=== PATIENT | female | born 1950 | race Caucasian/White ===

== ENCOUNTER → 2017-08-21 | Outpatient (CLI) | payer BC ==
[2015-01-30 10:20] VITALS: BP 115/60
[~2017-08-21] MED LIST: ASPI81TA44 PO; CARV12.52 PO; CHOL10003 PO; FISH1CAP PO; LISI-334 PO; LOVA40TA2 PO; METF500T4 PO; MULT-246 PO; NIAC500T10 PO
--- NOTE | 2017-08-21 09:49 | CARD ---
APPROVED REPORT EXAM: Two-dimensional and M-mode echocardiogram with Doppler and color Doppler. Other Information Quality : GoodHR: 85bpm Rhythm : NSR INDICATION Nonischemic cardiomyopathy 2D DIMENSIONS RVDd2.7 (2.9-3.5cm)Left Atrium(2D)3.4 (1.6-4.0cm) IVSd0.9 (0.7-1.1cm)Aortic Root(2D)2.0 (2.0-3.7cm) LVDd4.9 (3.9-5.9cm)LVOT Diameter2.0 (1.8-2.4cm) PWd0.9 (0.7-1.1cm)LVDs3.1 (2.5-4.0cm) FS (%) 36.3 %SV72.8 ml LVEF(%)65.8 (>50%) Aortic Valve AoV Peak Waldemar.136.8cm/sAoV VTI29.7cm AO Peak GR.7.5mmHgLVOT Peak Waldemar.95.3cm/s AO Mean GR.4mmHgAVA (VMAX)2.16cm2 Mitral Valve MV E Cxqqbvwb38.2cm/sMV E Peak Gr.5mmHg MV DECEL XDRW455dpLQ A Vuhltvkt343.8cm/s MV E Mean Gr.2mmHgE/A Ratio0.7 MV A Tdnkuhmy27fw Pulmonary Valve PV Peak Ipeysflj478.1cm/s Tricuspid Valve TR P. Cxhatcur692nx/sTR Peak Gr.23mmHg Pulmonary Vein S1 Tucgydke19.9cm/sD2 Ugslokcy60.6cm/s PVa iahmzchr09roud LEFT VENTRICLE The left ventricle is normal size. There is normal left ventricular wall thickness. The left ventricu lar systolic function is normal. The Ejection Fraction is 60%. There is normal LV segmental wall michelle on. Transmitral Doppler flow pattern is Grade I-abnormal relaxation pattern. RIGHT VENTRICLE The right ventricle is normal size. There is normal right ventricular wall thickness. The right ventr icular systolic function is normal. ATRIA The left atrium size is normal. The right atrium size is normal. The interatrial septum is intact wit h no evidence for an atrial septal defect or patent foramen ovale as noted on 2-D or Doppler imaging. AORTIC VALVE The aortic valve is mildly sclerotic. The aortic valve is trileaflet. Doppler and Color Flow revealed trace aortic regurgitation. There is no significant aortic valvular stenosis. MITRAL VALVE Mitral annular calcification is mild. The mitral valve leaflets are moderately thickened. There is no evidence of mitral valve prolapse. There is no mitral valve stenosis. Doppler and Color Flow reveale d no mitral valve regurgitation noted. TRICUSPID VALVE Doppler and Color Flow revealed trace tricuspid regurgitation. The pulmonary artery systolic pressure is estimated at 26 mmHg. There is no pulmonary hypertension. PULMONIC VALVE The pulmonic valve is not well visualized but appears to open adequately. Doppler and Color Flow reve aled trace pulmonic valvular regurgitation. There is no pulmonic valvular stenosis by spectral Dopple r. GREAT VESSELS The aortic root is normal in size. The ascending aorta is normal in size. The pulmonary artery is nor mal. The IVC is normal in size and collapses >50% with inspiration. PERICARDIAL EFFUSION There is no evidence of significant pericardial effusion. Critical Notification Critical Value: No <Conclusion> The left ventricular systolic function is normal. The Ejection Fraction is 60%. There is normal LV segmental wall motion. Transmitral Doppler flow pattern is Grade I-abnormal relaxation pattern. Trace aortic regurgitation. Trace tricuspid regurgitation. The pulmonary artery systolic pressure is estimated at 26 mmHg. There is no evidence of significant pericardial effusion.
== END | disposition home or self-care (01) ==
LOC: ECHO 08:38
PROVIDERS: ATTEND Internal Medicine Cardiovascular Disease
DX: I08.2 Rheumatic disorders of both aortic and tricuspid valves (principal); I42.9 Cardiomyopathy, unspecified
CPT/HCPCS: 93306

== ENCOUNTER → 2018-08-23 | Outpatient (CLI) | payer BC ==
[2015-01-30 10:20] VITALS: BP 115/60
[~2018-08-23] MED LIST changes: -ASPI81TA44 PO; +ASPI81TA59 PO; +METF500T16 PO; -METF500T4 PO
--- NOTE | 2018-08-23 10:23 | CARD ---
MR#: [id number] Date of Study: 08/23/2018 Ordering Physician: GEGE BYRNE, Referring Physician: GEGE BYRNE Tech: Loan Mendiola RDCS APPROVED REPORT EXAM: Two-dimensional and M-mode echocardiogram with Doppler and color Doppler. Other Information Quality : Good INDICATION Non-Ischemic Cardiomyopathy 2D DIMENSIONS RVDd2.2 (2.9-3.5cm)Left Atrium(2D)3.5 (1.6-4.0cm) IVSd0.8 (0.7-1.1cm)Aortic Root(2D)2.3 (2.0-3.7cm) LVDd4.6 (3.9-5.9cm)LVOT Diameter1.8 (1.8-2.4cm) PWd1.0 (0.7-1.1cm)LVDs3.7 (2.5-4.0cm) FS (%) 19.9 %SV40.3 ml LVEF(%)40.8 (>50%) Aortic Valve AoV Peak Waldemar.141.2cm/sAoV VTI33.0cm AO Peak GR.8.0mmHgLVOT Peak Waldemar.101.3cm/s AO Mean GR.5mmHgAVA (VMAX)1.77cm2 AI P 1/2 Bbuj404mz Mitral Valve MV E Icyxbruo855.4cm/sMV DECEL VJQA179ov MV A Pcetvggs612.9cm/sE/A Ratio0.9 Tricuspid Valve TR P. Nnxoghia939zx/sRAP MCUNCXNM6xtHx TR Peak Gr.72jqKzZAEN58nqOv Pulmonary Vein S1 Afwkrijo27.7cm/sD2 Ksisikrf53.3cm/s LEFT VENTRICLE The Left Ventricle is mildly dilated. There is normal left ventricular wall thickness. The Ejection F raction is 40-45%. There is mild global hypokinesis of the left ventricle. Transmitral Doppler flow p attern is Grade I-abnormal relaxation pattern. RIGHT VENTRICLE The right ventricle is normal size. The right ventricular systolic function is normal. There is a pac emaker lead in the right ventricle. ATRIA The left atrium size is normal. The right atrium size is normal. A pacemaker is seen in the right atr ium consistent with history. The interatrial septum is intact with no evidence for an atrial septal d efect or patent foramen ovale as noted on 2-D or Doppler imaging. AORTIC VALVE The aortic valve is calcified but opens well. Doppler and Color Flow revealed mild aortic regurgitati on. There is no significant aortic valvular stenosis. MITRAL VALVE The mitral valve is normal in structure and function. There is no evidence of mitral valve prolapse. There is no mitral valve stenosis. Doppler and Color-flow revealed trace mitral regurgitation. TRICUSPID VALVE The tricuspid valve is normal in structure and function. Doppler and Color Flow revealed trace tricus pid regurgitation. The PA pressure was estimated at 25 mmHg. There is no tricuspid valve stenosis. PULMONIC VALVE Doppler and Color Flow revealed mild pulmonic valvular regurgitation. There is no pulmonic valvular s tenosis. GREAT VESSELS The aortic root is normal in size. The ascending aorta is normal in size. The IVC is normal in size a nd collapses >50% with inspiration. PERICARDIAL EFFUSION There is no evidence of significant pericardial effusion. Critical Notification Critical Value: No <Conclusion> The Ejection Fraction is 40-45%. There is mild global hypokinesis of the left ventricle. Transmitral Doppler flow pattern is Grade I-abnormal relaxation pattern. There is a pacemaker lead in the right ventricle. Doppler and Color Flow revealed mild aortic regurgitation. Signed by : Russ Hsu, Electronically Approved : 08/23/2018 10:22:59
== END | disposition home or self-care (01) ==
LOC: ECHO 08:36
PROVIDERS: ATTEND Internal Medicine Cardiovascular Disease
DX: I35.1 Nonrheumatic aortic (valve) insufficiency (principal); I42.9 Cardiomyopathy, unspecified; E11.9 Type 2 diabetes mellitus without complications; I10 Essential (primary) hypertension; E78.5 Hyperlipidemia, unspecified; Z88.0 Allergy status to penicillin
CPT/HCPCS: 93306

== ENCOUNTER → 2019-01-11 | Outpatient (CLI) | payer BC ==
[2015-01-30 10:20] VITALS: BP 115/60
[~2019-01-11] MED LIST changes: +BUPIVACAINE MPF 0.5% 30 ML VIAL. INJ ONE; +CARV12.511 PO; -CARV12.52 PO; +CONTRAST GIVEN. MC PRN; +IOHEXOL 300 MG/ML 50 ML VIAL. IJ ONE; +LIDOCAINE WITH 8.4% SOD BICARB 3 ML DISP.SYRIN. INJ ONE; +methylPREDNISolone ACETATE 80 MG/ML VIAL. IM ONE
--- NOTE | 2019-01-11 09:58 | RAD ---
Fluoroscopically guided right hip joint injection, 01/11/2019: History: Hip pain Under local anesthesia, aseptic conditions and fluoroscopic guidance a 22-gauge spinal needle was passed into the right hip joint via an anterolateral approach. A small amount of iodinated contrast material was injected to confirm intra-articular positioning following which 80 mg of Depo-Medrol mixed with 4 cc of 0.5% bupivacaine was injected into the joint as requested. The spinal needle was then removed and hemostasis obtained. 1.1 minute of fluoroscopy time was utilized. One fluoroscopic spot image was recorded. The patient tolerated the procedure well and left the department in good condition.
== END | disposition home or self-care (01) ==
LOC: RAD 08:29
PROVIDERS: ATTEND Orthopaedic Surgery Sports Medicine
DX: M25.551 Pain in right hip (principal); Z88.0 Allergy status to penicillin
CPT/HCPCS: 20610; 77002; J1040; J3490; Q9967; 20605

== ENCOUNTER → 2019-06-25 | Outpatient (CLI) | payer BC ==
[2015-01-30 10:20] VITALS: BP 115/60
[~2019-06-25] MED LIST changes: +BUPIVACAINE MPF 0.5% 10 ML VIAL for KCIC. IM ONE; -BUPIVACAINE MPF 0.5% 30 ML VIAL. INJ ONE; -CONTRAST GIVEN. MC PRN; -IOHEXOL 300 MG/ML 50 ML VIAL. IJ ONE; +IOHEXOL 300 MG/ML 50 ML VIAL. INT ART ONE; +LIDOCAINE 1% Multi-Dose 20 ML VIAL. ID ONE; -LIDOCAINE WITH 8.4% SOD BICARB 3 ML DISP.SYRIN. INJ ONE; -NIAC500T10 PO; +NIAC500T14 PO; +methylPREDNISolone ACETATE 40 MG/ML VIAL. INT ART ONE; -methylPREDNISolone ACETATE 80 MG/ML VIAL. IM ONE
--- NOTE | 2019-06-26 08:18 | KCIC ---
PROCEDURE: Right hip joint steroid injection under fluoroscopic guidance INDICATION: Right hip pain. Primary osteoarthritis. CONTRAST: Approximately 2 cc Omnipaque 300 FINDINGS: The risks, benefits and alternatives to the procedure were discussed with the patient. A timeout was performed to confirm the patient's identity and laterality of the injection. Utilizing sterile technique, fluoroscopic guidance and local anesthesia with 1% lidocaine, the right hip joint was accessed utilizing a 22-gauge 3.5 inch spinal needle. A small amount Omnipaque 300 was used to confirm the intra-articular location of the needle tip. Subsequently, approximately 8 cc of a mixture containing 4 cc bupivacaine, 4 cc lidocaine and 2 cc (40 mg) Depo Medrol was injected. There were no immediate complications. Impression: 1. Technically successful right hip steroid injection under fluoroscopic guidance. Electronically signed by: WON DANIELS MD (06/26/2019 8:15 AM) [facility]
== END ==
LOC: KCIC 14:37
PROVIDERS: ATTEND Orthopaedic Surgery Sports Medicine
DX: M16.11 Unilateral primary osteoarthritis, right hip (principal)
CPT/HCPCS: 20610; 77002; J1030; Q9967

== ENCOUNTER → 2019-07-01 | Outpatient (CLI) | payer BC ==
[2015-01-30 10:20] VITALS: BP 115/60
[~2019-07-01] MED LIST changes: -BUPIVACAINE MPF 0.5% 10 ML VIAL for KCIC. IM ONE; -IOHEXOL 300 MG/ML 50 ML VIAL. INT ART ONE; -LIDOCAINE 1% Multi-Dose 20 ML VIAL. ID ONE; +REGADENOSON 0.4 MG/5 ML DISP.SYRIN. IV ONE; -methylPREDNISolone ACETATE 40 MG/ML VIAL. INT ART ONE
--- NOTE | 2019-07-01 13:24 | RAD ---
MR#: [id number] Date of Study: 07/01/2019 Ordering Physician: GEGE BYRNE Referring Physician: MARIA A CH Tech: Osvaldo Knight RT (R) (N) APPROVED REPORT Test Type: Pharmacological Stress Nurse/Tech: Pepe Taylor RN Test Indications: cardiomyopathy Cardiac History: Family history, HTN, PPM, DM Medications: See Electronic Medical Record Medical History: See Electronic Medical Record Resting ECG: V paced Resting Heart Rate: 78 bpm Resting Blood Pressure: 166/64mmHg Pretest Chest Pain: None Nurse/Tech Notes Lungs CTA Consent: The procedure was explained to the patient in lay terms. Informed consent was witnessed. Evangelista eout was entered into [employer]. History and Stress Test performed by Pepe Taylor RN Pharm. Details Pharmacologic stress testing was performed using 0.4mg per 5ml of regadenoson given intravenously ove r 7-10 seconds. Stress Symptoms No chest pain or symptoms. POST EXERCISE Reason for Termination: Infusion complete Max HR: 103 bpm Max Blood Pressure: 160/60mmHg Blood Pressure response to exercise: Normal blood pressure response during stress. Heart Rate response to exercise: normal response Chest Pain: No. Arrhythmia: Yes. PVC ST Change: No. INTERPRETATION Stress EKG Conclusion: Baseline EKG showed ventricular paced rhythm. Nondiagnostic changes at peak st ress. No arrhythmias. Imaging Protocol IMAGE PROTOCOL: Rest Tc-99m/stress Tc-99m 1 day Rest: Stress: Viability: Radiopharm.Tc99m CrwhtiuaoWc65m Sestamibi Xeqv25aAs 33mCi Duration 15min. 15min. Img Date 07/01/2019 07/01/2019 Inj-Img Vwrc80yjf. 60min. Rest Admin Site:IV - Left AntecubitalAdministrator:TRUMAN Walters Stress Admin Site: IV - Left AntecubitalAdministrator: TRUMAN Waltesr STRESS DATA End Diast. Vol.57.0mlAv. Heart Rate71.0bpm End Syst. Vol.19.0mlCO Index BSA0.0L/min Myocardial Mass95.0gEject. Jjvhxnma98.0% Stress Rates Pk. Fill Rate3.03EDV/secLVtime Pk. Fill 164.02msec Pk. Empty Rate3.74ESV/secLVtime Pk. Jtxpt737.53msec /3 Pk. Fill1.66EDV/sec Stress Scores Regional WT1.00Summed WT7.00 Regional WM0.00Summed WM3.00 Study quality was good. Left Ventricular size was Normal at Rest and Stress. Lung uptake was . Left Ventricular ejection fraction is 67%. The rest and stress images show normal perfusion, normal contraction and thickening. LV Perf. Quant 17 Seg. SSS0.00 17 Seg. SRS0.00 17 Seg. SDS0.00 Stress Defect Extent (% LAD)0.00Rest Defect Extent (% LAD)0.00Rev. Defect Extent (% LAD)0.00 Stress Defect Extent (% LCX) 0.00Rest Defect Extent (% LCX)8.80Rev. Defect Extent (% LCX)0.00 Stress Defect Extent (% RCA)0.00Rest Defect Extent (% RCA)0.00Rev. Defect Extent (% RCA)0.00 Stress Defect Extent (% LISA)0.00Rest Defect Extent (% LISA)1.50Rev. Defect Extent (% LISA)0.00 Conclusion 1. Regadenoson cardioisotope stress test did not show any evidence of ischemia or infarct. 2. Normal left ventricular systolic function with ejection fraction calculated at 67%. 3. Low risk for cardiac events. Signed by : Gege Byrne, Electronically Approved : 07/01/2019 13:23:39
== END | disposition home or self-care (01) ==
LOC: NM 08:03
PROVIDERS: ATTEND Internal Medicine Cardiovascular Disease
DX: I42.8 Other cardiomyopathies (principal); I10 Essential (primary) hypertension; E11.9 Type 2 diabetes mellitus without complications; Z95.0 Presence of cardiac pacemaker
CPT/HCPCS: 78452; 93017; A9500; J2785

== ENCOUNTER → 2019-07-02 | Outpatient (CLI) | payer BC, MEDICARE ==
[2015-01-30 10:20] VITALS: BP 115/60
[~2019-07-02] MED LIST changes: -REGADENOSON 0.4 MG/5 ML DISP.SYRIN. IV ONE
--- NOTE | 2019-07-02 16:04 | CARD ---
MR#: [id number] Date of Study: 07/02/2019 Ordering Physician: GEGE BYRNE, Referring Physician: GEGE BYRNE, Tech: Carlee Mae APPROVED REPORT EXAM: Two-dimensional and M-mode echocardiogram with Doppler and color Doppler. Other Information Quality : AverageHR: 67bpm Rhythm : Pacemaker INDICATION Cardiomyopathy NonIschemic Cardiomyopathy Surgery/Intervention Pacemaker: Date: 2005 RISK FACTORS Hypertension Hyperlipidemia Diabetes 2D DIMENSIONS RVDd2.6 (2.9-3.5cm)Left Atrium(2D)3.5 (1.6-4.0cm) IVSd0.7 (0.7-1.1cm)Aortic Root(2D)2.6 (2.0-3.7cm) LVDd5.1 (3.9-5.9cm)LVOT Diameter1.8 (1.8-2.4cm) PWd0.8 (0.7-1.1cm)LVDs3.7 (2.5-4.0cm) FS (%) 26.9 %SV64.9 ml LVEF(%)52.2 (>50%) Aortic Valve AoV Peak Waldemar.128.7cm/sAoV VTI26.9cm AO Peak GR.6.6mmHgLVOT Peak Waldemar.82.5cm/s LVOT VTI 20.37cmAO Mean GR.3mmHg KALEB (VMAX)1.67em1BYJ (VTI)2.00cm2 AI P 1/2 Lrvr517pe Mitral Valve MV E Rmbewgwt87.8cm/sMV DECEL QEPA268yc MV A Szgfawcc32.2cm/sMV OCI41fm E/A Ratio1.0MVA (PHT)4.82cm2 TDI E/Lateral E'11.2E/Medial E'11.6 Pulmonary Valve PV Peak Uqaqzfdv585.7cm/sPV Peak Grad.4mmHg Tricuspid Valve TR P. Qaxutmam102ut/sRAP CAOFXMNE3opKa TR Peak Gr.81juKkIJDW67meUq Pulmonary Vein S1 Zdqilmgw13.6cm/sD2 Pisfbvzg81.6cm/s PVa qbcpdvmj298ssvp LEFT VENTRICLE The left ventricle is normal size. There is normal left ventricular wall thickness. The left ventricu lar systolic function is normal and the ejection fraction is within normal range. The Ejection Fracti on is 50-55%. There is normal LV segmental wall motion. Transmitral Doppler flow pattern is Grade II- pseudonormal filling dynamics. RIGHT VENTRICLE The right ventricle is normal size. There is normal right ventricular wall thickness. The right ventr icular systolic function is normal. There is a pacemaker lead in the right ventricle. ATRIA The left atrium size is normal. The right atrium size is normal. There is a pacemaker lead seen in th e right atrium. The interatrial septum is intact with no evidence for an atrial septal defect or marie nt foramen ovale as noted on 2-D or Doppler imaging. AORTIC VALVE The aortic valve is thickened but opens well. Doppler and Color Flow revealed mild aortic regurgitati on. There is no significant aortic valvular stenosis. MITRAL VALVE The mitral valve is thickened but opens well. There is no evidence of mitral valve prolapse. There is no mitral valve stenosis. Doppler and Color-flow revealed trace mitral regurgitation. TRICUSPID VALVE The tricuspid valve is normal in structure and function. Doppler and Color Flow revealed trace tricus pid regurgitation with an estimated PAP of 28 mmHg. There is no tricuspid valve stenosis. PULMONIC VALVE The pulmonic valve is not well visualized. Doppler and Color Flow revealed trace to mild pulmonic joe vular regurgitation. There is no pulmonic valvular stenosis. GREAT VESSELS The aortic root is normal in size. The IVC is normal in size and collapses >50% with inspiration. PERICARDIAL EFFUSION There is no evidence of significant pericardial effusion. Critical Notification Critical Value: No <Conclusion> The left ventricular systolic function is normal and the ejection fraction is within normal range. T he Ejection Fraction is 50-55%. There is normal LV segmental wall motion. There is a pacemaker lead in the right ventricle. Doppler and Color Flow revealed mild aortic regurgitation. Signed by : Russ Hsu, Electronically Approved : 07/02/2019 16:03:31
== END | disposition home or self-care (01) ==
LOC: ECHO 08:56
PROVIDERS: ATTEND Internal Medicine Cardiovascular Disease
DX: I08.8 Other rheumatic multiple valve diseases (principal); I42.8 Other cardiomyopathies; Z95.0 Presence of cardiac pacemaker
CPT/HCPCS: 93306

== ENCOUNTER → 2019-07-30 | Outpatient (CLI) | payer BC, MEDICARE ==
[2015-01-30 10:20] VITALS: BP 115/60
[~2019-07-30] MED LIST changes: +CALC600T4 PO; +CETI10TA22 PO; +GLUC1TAB69 PO; +MELO15TA23 PO
[2019-07-30 09:43] LABS: BASO # 0.1 x10^3/uL (0.0-0.2); BASO % 1 % (0-3); EOS # 0.6 x10^3/uL (0.0-0.7); EOS % 6 % (0-3); HEMATOCRIT 41.7 % (36.0-47.0); HEMOGLOBIN 14.2 g/dL (12.0-15.5); LYMPH # 1.7 x10^3/uL (1.0-4.8); LYMPH % 17 % (24-48); MEAN CORPUSCULAR HEMOGLOBIN 30 pg (25-35); MEAN CORPUSCULAR HGB CONC 34 g/dL (31-37); MEAN CORPUSCULAR VOLUME 87 fL (79-100); MONO # 0.9 x10^3/uL (0.0-1.1); MONO % 9 % (0-9); NEUT # 6.8 x10^3/uL (1.8-7.7); NEUT % 67 % (31-73); PLATELET COUNT 268 x10^3/uL (140-400); RED CELL DISTRIBUTION WIDTH 13.3 % (11.5-14.5); WHITE BLOOD COUNT 10.1 x10^3/uL (4.0-11.0)
[2019-07-30 09:49] LABS: BILIRUBIN,URINE NEGATIVE (NEG); CLARITY,URINE CLEAR; COLOR,URINE YELLOW; NITRITE,URINE NEGATIVE (NEG); PROTEIN,URINE NEGATIVE (NEG-TRACE); UROBILINOGEN,URINE 0.2 mg/dL (0.2 mg/dL)
[2019-07-30 09:57] LABS: PROTHROMBIN TIME PATIENT 13.1 SEC (11.7-14.0)
[2019-07-30 10:09] LABS: ALBUMIN 3.8 g/dL (3.4-5.0); CALCIUM 9.6 mg/dL (8.5-10.1); CREATININE 0.8 mg/dL (0.6-1.0); GFR 71.3; POTASSIUM 4.8 mmol/L (3.5-5.1)
[2019-07-30 10:27] LABS: BACTERIA,URINE FEW /HPF (0-FEW); SQUAMOUS EPITHELIAL CELL,UR FEW /LPF
--- NOTE | 2019-07-30 13:40 | EKG ---
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
--- NOTE | 2019-07-30 15:55 | RAD ---
Chest, PA and Lateral: Technique: PA and lateral views of the chest were obtained. History: Preop. Comparison: 01/14/2010. Findings: The heart and pulmonary vasculature appear within normal limits. Left-sided cardiac pacer AICD is identified.. The pleural margins are clear. Moderate degenerative changes thoracic spine. Impression: No acute chest process is seen. Electronically signed by: Simon Holguin MD (07/30/2019 3:52 PM) [facility]
[2019-07-31 03:08] LABS: HEMOGLOBIN A1C 5.8 % (4.8-5.6)
== END | disposition home or self-care (01) ==
LOC: SURGPAT 16:09
PROVIDERS: ATTEND Orthopaedic Surgery Sports Medicine
DX: Z01.818 Encounter for other preprocedural examination (principal); I10 Essential (primary) hypertension; M47.894 Other spondylosis, thoracic region; I45.10 Unspecified right bundle-branch block; R94.31 Abnormal electrocardiogram [ECG] [EKG]; I51.7 Cardiomegaly
CPT/HCPCS: 36415; 71046; 80048; 81001; 82040; 82306; 83036; 85025; 85610; 85651; 85730; 87086; 87641; 93005

== ENCOUNTER 2019-08-12 11:00 | Inpatient (IN) | payer MEDICARE, BC ==
[~2019-08-12] VITALS: Ht 149.9 cm; Wt 56.7 kg
[2019-08-12] VITALS (7 sets, daily range): BP systolic 117–157; BP diastolic 71–79
[~2019-08-12 11:00] MED LIST changes: +ACETAMINOPHEN 500 MG TABLET PO PRN; +DEXAMETHASONE SOD PHOS 4 MG/ML VIAL ONE; +FAMOTIDINE 20 MG/2 ML VIAL ONE; +HYDROmorphone 2 MG/ML VIAL IV PRN; +INSULIN LISPRO 100 UNIT/ML 3ML VIAL for OP,RR ONLY. SQ PRN; +IV RINGERS,LACTATED 1000ML 1,000 ML IV SCH; +LIDOCAINE 2% PF 5 ML VIAL. ONE; +MORPHINE SULFATE 2 MG/ML VIAL. IV PRN; +MORPHINE SULFATE 5 MG, KETOROLAC 30MG VIAL 30 MG, ROPIVacaine 0.5% PF 60 ML, EPINEPHrin... INT ART ONE; +ONDANSETRON PF 4 MG/2 ML VIAL. IV PRN; +ONDANSETRON PF 4 MG/2 ML VIAL. ONE; +PROCHLORPERAZINE 10 MG/2 ML VIAL. IV PRN; +PROPOFOL 20 ML IV ONE; +ROCURONIUM 50 MG/5 ML VIAL. ONE; +TRANEXAMIC ACID 1,000 MG in IV NS 50ML -- 1ST BAG INJ ONE; +TRANEXAMIC ACID 1,000 MG in IV NS 50ML -- 2ND BAG INJ ONE; +VANCOMYCIN 1GM IVPB FOR OMNI 250 ML IV PRN; +fentaNYL PF VIAL 100 MCG/2 ML VIAL IV PRN; +fentaNYL PF VIAL 100 MCG/2 ML VIAL ONE
[2019-08-12] MEDS: INSULIN LISPRO 300 UNITS/3 ML VIAL. SQ SCH ×2 (11:40→16:20)
[2019-08-12] MEDS ORDERED: ZOLPIDEM 5 MG TABLET. PO PRN (11:45)
[2019-08-12] MEDS ORDERED: METOCLOPRAMIDE HCL 10 MG/2 ML VIAL. IV PRN (11:45)
[2019-08-12] MEDS ORDERED: diphenhydrAMINE 50 MG/ML VIAL IV PRN (11:45)
[2019-08-12] MEDS ORDERED: DEXTROSE 50% 25 GM / 50ML DISP.SYRIN. IV PRN (11:45)
[2019-08-12] MEDS ORDERED: PROCHLORPERAZINE 5 MG TABLET. PO PRN (11:45)
[2019-08-12] MEDS ORDERED: MORPHINE SULFATE 2 MG/ML VIAL. IV PRN (11:45)
[2019-08-12] MEDS ORDERED: fentaNYL PF VIAL 100 MCG/2 ML VIAL IV PRN (11:45)
[2019-08-12] MEDS ORDERED: 0.9 % SODIUM CHLORIDE 10 ML DISP.SYRIN. IV PRN (11:45)
[2019-08-12] MEDS ORDERED: IV DEXTROSE 5% 250 ML BAG. IV PRN (11:45)
[2019-08-12] MEDS ORDERED: CALCIUM CARBONATE 500 MG TAB.CHEW PO PRN (11:45)
[2019-08-12] MEDS: ONDANSETRON PF 4 MG/2 ML VIAL. IV SCH ×2 (12:00→17:03)
[2019-08-12] MEDS: ONDANSETRON ODT 4 MG TAB.RAPDIS. PO SCH ×2 (12:00→17:03)
[2019-08-12] MEDS ORDERED: ROCURONIUM 50 MG/5 ML VIAL. ONE (13:23)
[2019-08-12] MEDS ORDERED: NEOSTIGMINE METHYLSULFATE 5 MG/5 ML SYRINGE. ONE (13:32)
[2019-08-12] MEDS ORDERED: GLYCOPYRROLATE 1 MG/5 ML VIAL. ONE (13:33)
[2019-08-12] MEDS ORDERED: fentaNYL PF VIAL 100 MCG/2 ML VIAL ONE (13:38)
--- NOTE | 2019-08-12 13:50 | PDOC4 ---
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 Findings: Advanced primary degenerative joint disease of right hip. Blood loss: 200 mL Complications: None Components inserted Clifton and nephew 50 mm R3 shell with a 20� posteriorly directed liner, size 3 standard offset anthology stem with a 32+4 cobalt chrome head Reason for procedure: Patient is a very pleasant individual with severe progressive pain interfering with her activities of daily living and attributab le to the above preoperative diagnosis. Clinical and radiographic examination were consistent with the above preoperative diagnosis and after discussion of the risks, benefits, and alternatives, taking into account her failure of conservative therapies, the patient elected to proceed with surgery. Description of procedure: Patient was greeted in the preoperative area by myself for the correct extremity was verified and marked. She was taken back to the operative suite and antibiotics were started as they were brought back. Once in the operative room, patient was transferred gently supine to the operating table and secured to the bed with all pressure points padded. Axillary roll was used. The down leg was padded at the fibular head and heel. Patient was secured the bed with our hip positioning devices. I then appreciated leg lengths in this position. After this, the operative extremity was prepped and draped in our usual sterile fashion including an [place]. We then proceeded to conduct our standard preoperative timeout. I then palpated and marked surface anatomy and shweta a line from my standard posterolateral skin incision. Skin was incised with a scalpel and subcutaneous tissue was dissected down the level of fascia with electrocautery. Bleeders were cauterized as they were encountered. Oh elevator was used to sweep aside adherent subcutaneous tissue for later identification and repair of the fascia. Fascia was then incised in line with the skin incision and the gluteus miguelina was split bluntly in line with its fibers. There was abundant fibrotic tissue present and I excised some of this for exposure. After this, a lap was used to push bursal tissue posteriorly to identify the piriformis and quadratus, these were taken down, the piriformis was tagged for later repair. Our self-retaining retractor was in place. At this point, identified the hip capsule incised in a T-type incision, taking ends for later repair. The hip was dislocated, overall it was quite tight. I then palpated and marked with electrocautery areas at the greater and lesser trochanters and center of the femoral head and I made measurements for length and offset. I then shweta a line on the neck about 1 cm proximal lesser trochanter and made my neck cut through this. The bony remnant was delivered from the operative field. We placed her acetabular retractors and inspected the acetabulum. I excised the soft tissues from the floor the acetabulum as well as the labrum. An 8mm in diameter cyst was packed with bone graft taken from femoral head. Osteophytes were taken down posteriorly. After this, we began reaming and reamed down until we encountered a punctate bleeding bony bed. The operative field and then thoroughly irrigated out. The cup was then impacted referencing [place]ia anatomy and the crossbar attachment. I had identified the transverse acetabular ligament. After this, I palpated for the posterior column and greater sciatic notch and referenced this to place a screw into the posterior column. However, due to technical constraints, no screw was placed. The operative field was irrigated again and my polyethylene liner was then impacted in position and confirmed that it was fully seated on circumferential visualization. We then removed our acetabular retractors and used our proximal femoral elevator and repositioned the leg. I used the omer cutting osteotome followed by canal finding reamer followed by lateralizing reamer. We then began broaching and broached to the above size and trialed different head and necks, using our measurements as a guide as well. The above sizes gave the best range of motion and stability. After this, the trial components were removed and the canal was thoroughly irrigated. I then impacted my femoral stem into position. We then re-trialed the head sizes and selected the above size. The hip was redislocated and the Lux taper region was washed and dried. The femoral head was then gently impacted in position and the acetabulum was inspected and irrigated to make sure was free of debris. After this, the hip was reduced. Excellent range of motion and stability were achieved. I was happy with the leg lengths. We then closed capsule with simple interrupted #2 Ethibond. Piriformis was reapproximated through drill holes. I then injected my periarticular mixture into the paul-incisional soft tissues below. Fascia was closed was running #2 Quill suture. Inverted interrupted 2-0 Vicryl in a multilayered fashion was used for subcutaneous tissue and running 3-0 Monocryl for skin. Prior to wound closure, all counts correct �2. No complications. At the conclusion, the hip region was cleansed and dried and our incisional wound vacuum was applied. Patient tolerated surgery well. At the conclusion, they were laid supine and transferred gently supine to the hospital bed and taken to PACU in a stable and extubated condition. Postoperative plan is to admit the patient to the joint center for DVT and antibiotic prophylaxis as well as to begin the rehabilitation and receive likely IV pain medicine. ADITYA SCHWAB II, MD Aug 12, 2019 13:50
[2019-08-12] MEDS ORDERED: SEVOFLURANE > 120 MINUTES. IH ONE (13:58)
[2019-08-12] MEDS: SENNOSIDES/DOCUSATE 8.6/50MG TABLET. PO SCH (15:00)
[2019-08-12] MEDS: CALCIUM CARBONATE 500 MG TABLET PO SCH (15:00)
[2019-08-12] MEDS ORDERED: CETIRIZINE HCL 10 MG TABLET. PO SCH (15:00)
[2019-08-12] MEDS: MULTIVITAMIN with MINERAL TABLET. PO SCH (15:00)
[2019-08-12] MEDS: CHOLECALCIFEROL (VITAMIN D3) 1,000 UNIT TABLET PO SCH (15:00)
--- NOTE | 2019-08-12 15:12 | RAD ---
EXAM: AP pelvis DATE: 08/12/2019 2:29 PM INDICATION: Post op right hip arthroplasty COMPARISON: No Prior FINDINGS/ IMPRESSION: 1. Right total hip arthroplasty, in good alignment without definite hardware complication or fracture. 2. Expected postoperative soft tissue changes are seen. Electronically signed by: Jean-Pierre Mcnally MD (08/12/2019 3:09 PM) [facility]
[2019-08-12] MEDS: IV NORMAL SALINE 1000ML BAG 1,000 ML IV SCH (15:20)
[2019-08-12] MEDS ORDERED: FLU VAX QS 2019-20 (36MOS+)/PF 0.5 ML SYRINGE. VAX IM ONE (15:45)
--- NOTE | 2019-08-12 15:50 | NUR ---
RECEIVED FROM RECOVERY; FAMILY AT BEDSIDE. SHE HAS GOOD SENSATION, PULSES AND MOTION BILATERAL LOWER EXTREMITIES. SON AT BEDSIDE. HAS OWN WALKER.
[2019-08-12 15:57] LABS: PROTHROMBIN TIME PATIENT 13.3 SEC (11.7-14.0)
[2019-08-12] MEDS: FERROUS SULFATE 325 MG TABLET. PO SCH (16:19)
[2019-08-12] MEDS: CARVEDILOL 12.5 MG TABLET. PO SCH (16:19)
[2019-08-12] MEDS: metFORMIN 500 MG TABLET PO SCH (16:19)
[2019-08-12] MEDS ORDERED: WARFARIN 7.5 MG TABLET. PO ONE (16:30)
[2019-08-12] MEDS: LISINOPRIL 10 MG TABLET PO SCH (17:03)
[2019-08-12] MEDS: oxyCODONE IR 5 MG TABLET PO PRN (17:04)
[2019-08-12] MEDS: CETIRIZINE HCL 10 MG TABLET. PO SCH (21:27)
[2019-08-12] MEDS: ATORVASTATIN CALCIUM 20 MG TABLET PO SCH (21:27)
[2019-08-13] MEDS ORDERED: VANCOMYCIN 1 GM in IV NORMAL SALINE 250ML 250 ML IV ONE (02:00)
[2019-08-13] MEDS: oxyCODONE IR 5 MG TABLET PO PRN ×4 (02:14→21:22)
[2019-08-13 02:32] VITALS: BP 132/67
[2019-08-13] MEDS: ONDANSETRON ODT 4 MG TAB.RAPDIS. PO SCH ×2 (06:00)
[2019-08-13] MEDS: ONDANSETRON PF 4 MG/2 ML VIAL. IV SCH ×2 (06:00)
[2019-08-13] MEDS ORDERED: MAGNESIUM HYDROXIDE 2,400 MG/30 ML ORAL.SUSP. PO PRN (06:00)
[2019-08-13 06:44] VITALS: BP 106/63
[2019-08-13] MEDS: INSULIN LISPRO 300 UNITS/3 ML VIAL. SQ SCH ×3 (08:00→17:00)
[2019-08-13] MEDS: CARVEDILOL 12.5 MG TABLET. PO SCH ×2 (08:25→17:31)
[2019-08-13] MEDS: CALCIUM CARBONATE 500 MG TABLET PO SCH (08:27)
[2019-08-13] MEDS: SENNOSIDES/DOCUSATE 8.6/50MG TABLET. PO SCH (08:28)
[2019-08-13] MEDS: ACETAMINOPHEN 500 MG TABLET PO SCH ×3 (08:28→21:22)
[2019-08-13] MEDS: MULTIVITAMIN with MINERAL TABLET. PO SCH (08:28)
[2019-08-13] MEDS: FERROUS SULFATE 325 MG TABLET. PO SCH ×2 (08:29→17:31)
[2019-08-13] MEDS: metFORMIN 500 MG TABLET PO SCH ×2 (08:29→17:31)
[2019-08-13] MEDS: CHOLECALCIFEROL (VITAMIN D3) 1,000 UNIT TABLET PO SCH (08:29)
--- NOTE | 2019-08-13 08:30 | NUR ---
Held bp meds this am. BP 119/69. Stated it was low. Dr. Figueroa aware of holding BP meds this am.
[2019-08-13] MEDS: LISINOPRIL 10 MG TABLET PO SCH (09:00)
--- NOTE | 2019-08-13 10:52 | PDOC ---
ORTHO PROGRESS NOTES Subjective She feels like she is doing well. She has been up and walking several times and has no concerns. Vitals Vital Signs Date Time Temp Pulse Resp B/P (MAP) Pulse Ox O2 Delivery O2 Flow Rate FiO2 08/13/19 09:35 Room Air 08/13/19 06:44 98.2 79 22 106/63 (77) 96 98.2 08/12/19 17:04 1.0 Labs Laboratory Tests Test 08/12/19 11:00 08/12/19 11:26 08/12/19 14:22 08/12/19 16:18 Prothrombin Time 13.3 SEC (11.7-14.0) Prothromb Time International Ratio 1.0 (0.8-1.1) Glucose (Fingerstick) 111 mg/dL (70-99) 162 mg/dL (70-99) 140 mg/dL (70-99) Test 08/12/19 21:26 08/13/19 05:30 08/13/19 06:50 Glucose (Fingerstick) 150 mg/dL (70-99) 116 mg/dL (70-99) Hemoglobin 11.2 g/dL (12.0-15.5) Prothrombin Time 18.0 SEC (11.7-14.0) Prothromb Time International Ratio 1.5 (0.8-1.1) Laboratory Tests Test 08/12/19 11:00 08/12/19 11:26 08/12/19 14:22 08/12/19 16:18 Prothrombin Time 13.3 SEC (11.7-14.0) Prothromb Time International Ratio 1.0 (0.8-1.1) Glucose (Fingerstick) 111 mg/dL (70-99) 162 mg/dL (70-99) 140 mg/dL (70-99) Test 08/12/19 21:26 08/13/19 05:30 08/13/19 06:50 Glucose (Fingerstick) 150 mg/dL (70-99) 116 mg/dL (70-99) Hemoglobin 11.2 g/dL (12.0-15.5) Prothrombin Time 18.0 SEC (11.7-14.0) Prothromb Time International Ratio 1.5 (0.8-1.1) Notes She is awake and alert and sitting in a chair. Dressing is intact. Normal motor and sensation are present in her operative extremity Assessment and Plan She will continue PT and OT, Coumadin JONNA SCHWAB II, MD Aug 13, 2019 10:51
[2019-08-13] MEDS: IV NORMAL SALINE 1000ML BAG 1,000 ML IV SCH (11:37)
[2019-08-13] MEDS ORDERED: ONDANSETRON ODT 4 MG TAB.RAPDIS. PO PRN (12:00)
[2019-08-13] MEDS ORDERED: ONDANSETRON PF 4 MG/2 ML VIAL. IV PRN (12:00)
--- NOTE | 2019-08-13 12:30 | NUR ---
Re-checked BP 123/35. FSBS not done due trays served early today. Pt had finished lunch tray.
--- NOTE | 2019-08-13 14:14 | NUR ---
Pharmacy Warfarin Dosing Note S:Pharmacy consulted to assist with anticoagulation therapy started 08/12/19 with target INR: 1.6 - 2.5 O:SYLVESTER ZHENG is a 68 year old F with JEFFERY LABS: Last INR: 1.5 Last HGB: 11.2 Last HCT: Last PLT: Last dose of 7.5 mg given on 08/12/19 at 1700 Previous Regimen: Vitamin K given: Drug Interaction Changes: Ongoing Drug Interactions: A:INR of 1.5 is below desired range. Target range for this patient is: 1.6 - 2.5 P: Warfarin dose: 1.5 MG Today at 1600 Bridge Therapy: None Next INR due IN AM Pharmacy anticoagulation service will continue to follow. JENNY HARRIS [facility], 08/13/19 0997
--- NOTE | 2019-08-13 14:15 | NUR ---
Pharmacy Warfarin Dosing Note S:Pharmacy consulted to assist with anticoagulation therapy started 08/12/19 with target INR: 1.6 - 2.5 O:SYLVESTER ZHENG is a 68 year old F with JFEFERY LABS: Last INR: 1.5 Last HGB: 11.2 Last HCT: Last PLT: Last dose of 7.5 mg given on 08/12/19 at 1700 Previous Regimen: Vitamin K given: Drug Interaction Changes: Ongoing Drug Interactions: A:INR of 1.5 is below desired range. Target range for this patient is: 1.6 - 2.5 P: Warfarin dose: 1.5 MG Today at 1600 Bridge Therapy: None Next INR due IN AM Pharmacy anticoagulation service will continue to follow. JENNY HARRIS [facility], 08/13/19 1258
[2019-08-13] MEDS ORDERED: BISACODYL 10 MG SUPP.RECT. PR PRN (16:00)
[2019-08-13] MEDS ORDERED: WARFARIN 1 MG TABLET. PO ONE (16:00)
[2019-08-13 17:58] VITALS: BP 146/84
[2019-08-13] MEDS: CETIRIZINE HCL 10 MG TABLET. PO SCH (21:22)
[2019-08-13] MEDS: ATORVASTATIN CALCIUM 20 MG TABLET PO SCH (21:22)
[2019-08-14] MEDS: oxyCODONE IR 5 MG TABLET PO PRN ×2 (01:40→11:46)
[2019-08-14] MEDS: ACETAMINOPHEN 500 MG TABLET PO SCH ×4 (03:00→21:37)
[2019-08-14 06:13] VITALS: BP 115/64
[2019-08-14 07:23] LABS: HEMATOCRIT 31.3 % (36.0-47.0); HEMOGLOBIN 10.7 g/dL (12.0-15.5)
[2019-08-14 07:37] LABS: PROTHROMBIN TIME PATIENT 26.2 SEC (11.7-14.0)
--- NOTE | 2019-08-14 07:53 | PDOC ---
ORTHO PROGRESS NOTES Subjective Patient with no complaint of pain and ready for PT. Post-op Day: 2 Procedure R JEFFERY Vitals Vital Signs Date Time Temp Pulse Resp B/P (MAP) Pulse Ox O2 Delivery O2 Flow Rate FiO2 08/14/19 06:13 98.9 83 18 115/64 (81) 96 Room Air 98.9 Labs Laboratory Tests Test 08/12/19 11:00 08/12/19 11:26 08/12/19 14:22 08/12/19 16:18 Prothrombin Time 13.3 SEC (11.7-14.0) Prothromb Time International Ratio 1.0 (0.8-1.1) Glucose (Fingerstick) 111 mg/dL (70-99) 162 mg/dL (70-99) 140 mg/dL (70-99) Test 08/12/19 21:26 08/13/19 05:30 08/13/19 06:50 08/13/19 16:30 Glucose (Fingerstick) 150 mg/dL (70-99) 116 mg/dL (70-99) 134 mg/dL (70-99) Hemoglobin 11.2 g/dL (12.0-15.5) Prothrombin Time 18.0 SEC (11.7-14.0) Prothromb Time International Ratio 1.5 (0.8-1.1) Test 08/14/19 05:53 08/14/19 06:55 Glucose (Fingerstick) 106 mg/dL (70-99) Hemoglobin 10.7 g/dL (12.0-15.5) Hematocrit 31.3 % (36.0-47.0) Mean Corpuscular Hemoglobin Concent 34 g/dL (31-37) Prothrombin Time 26.2 SEC (11.7-14.0) Prothromb Time International Ratio 2.4 (0.8-1.1) Laboratory Tests Test 08/13/19 16:30 08/14/19 05:53 08/14/19 06:55 Glucose (Fingerstick) 134 mg/dL (70-99) 106 mg/dL (70-99) Hemoglobin 10.7 g/dL (12.0-15.5) Hematocrit 31.3 % (36.0-47.0) Mean Corpuscular Hemoglobin Concent 34 g/dL (31-37) Prothrombin Time 26.2 SEC (11.7-14.0) Prothromb Time International Ratio 2.4 (0.8-1.1) Notes awake and alert Assessment and Plan POD # 2 S/P R JEFFERY motor and sensation intact distally moving extremities on request dressing dry and intact LINO CHATTERJEE APRN Aug 14, 2019 07:53
[2019-08-14] MEDS: metFORMIN 500 MG TABLET PO SCH ×2 (07:58→16:43)
[2019-08-14] MEDS: FERROUS SULFATE 325 MG TABLET. PO SCH ×2 (07:59→16:43)
[2019-08-14] MEDS: CHOLECALCIFEROL (VITAMIN D3) 1,000 UNIT TABLET PO SCH (07:59)
[2019-08-14] MEDS: MULTIVITAMIN with MINERAL TABLET. PO SCH (07:59)
[2019-08-14] MEDS: SENNOSIDES/DOCUSATE 8.6/50MG TABLET. PO SCH (08:00)
[2019-08-14] MEDS: CALCIUM CARBONATE 500 MG TABLET PO SCH (08:00)
[2019-08-14] MEDS: LISINOPRIL 10 MG TABLET PO SCH (08:00)
[2019-08-14] MEDS: INSULIN LISPRO 300 UNITS/3 ML VIAL. SQ SCH ×3 (08:00→16:44)
[2019-08-14] MEDS: CARVEDILOL 12.5 MG TABLET. PO SCH ×2 (08:00→16:44)
--- NOTE | 2019-08-14 11:42 | NUR ---
Pharmacy Warfarin Dosing Note S:Pharmacy consulted to assist with anticoagulation therapy started 08/12/19 with target INR: 1.6 - 2.5 O:SYLVESTER ZHENG is a 68 year old F with JEFFERY LABS: Last INR: 2.4 Last HGB: 10.7 Last HCT: 31.3 Last PLT: Last dose of 1.5 given on 08/13/19 at 1732 Previous Regimen: Vitamin K given: N Drug Interaction Changes: Ongoing Drug Interactions: A:INR of 2.4 is within desired range. Target range for this patient is: 1.6 - 2.5 P: Warfarin dose: 1 mg Today at 1600. Bridge Therapy: None Next INR due tomorrow. Pharmacy anticoagulation service will continue to follow. Osvaldo Markham [facility], 08/14/19 [id number]
--- NOTE | 2019-08-14 15:07 | PATHOLOGY ---
[facility] Accession Number: [id number] . 01 Material submitted: . hip - RIGHT HIP BONE AND TISSUE. Modifiers: right . 01 Clinical history: . Right hip degenerative joint disease . 02 Diagnosis: Bone, right hip, removal: - Degenerative osteoarthritis. (SKM:miesha; 08/14/2019) S 08/14/2019 0957 Local . 02 Electronically signed: . Star Calvert MD, Pathologist NPI- [id number] . 01 Gross description: . The specimen is received in formalin, labeled "Veronika Billings, right hip bone and tissue". Received is a femoral head with attached femoral neck measuring 5.4 x 4.6 x 5.0 cm in greatest dimensions. The articular surface is pale hennessy to light hennessy in appearance with evidence of eburnation, as well as osteophytic lipping. Sectioning reveals a yellow-hennessy marrow space with no grossly distinct nodules or lesions. The specimen is submitted representatively in cassette A1, following decalcification. ([facility]; 08/13/2019) QA/[facility] 08/13/2019 0849 Local . 02 Pathologist provided ICD-10: M16.11 . 02 CPT . 570480, 082528 Specimen Comment: A courtesy copy of this report has been sent to Specimen Comment: [phone], . Specimen Comment: Report sent to / DR CAREY Performed at: 01 [facility] [address], [place] [id number] MD Bonifacio Mena MD Phone: [phone] Performed at: 02 [facility] [id number] MD Chaitanya Barron MD Phone: [phone]
[2019-08-14] MEDS ORDERED: WARFARIN 1 MG TABLET. PO ONE (16:00)
[2019-08-14 16:45] VITALS: BP 119/61
[2019-08-14 19:30] VITALS: BP 110/58
[2019-08-14] MEDS: CETIRIZINE HCL 10 MG TABLET. PO SCH (21:37)
[2019-08-14] MEDS: ATORVASTATIN CALCIUM 20 MG TABLET PO SCH (21:37)
[2019-08-15] MEDS: oxyCODONE IR 5 MG TABLET PO PRN ×2 (01:11→10:09)
[2019-08-15] MEDS: ACETAMINOPHEN 500 MG TABLET PO SCH ×3 (03:21→14:51)
[2019-08-15 04:43] LABS: HEMATOCRIT 27.5 % (36.0-47.0); HEMOGLOBIN 9.5 g/dL (12.0-15.5)
[2019-08-15 04:53] LABS: PROTHROMBIN TIME PATIENT 22.5 SEC (11.7-14.0)
[2019-08-15 06:00] VITALS: BP 116/66
[2019-08-15] MEDS: INSULIN LISPRO 300 UNITS/3 ML VIAL. SQ SCH ×3 (08:00→16:52)
[2019-08-15] MEDS: CALCIUM CARBONATE 500 MG TABLET PO SCH (08:08)
[2019-08-15] MEDS: metFORMIN 500 MG TABLET PO SCH ×2 (08:08→16:52)
[2019-08-15] MEDS: SENNOSIDES/DOCUSATE 8.6/50MG TABLET. PO SCH (08:09)
[2019-08-15] MEDS: MULTIVITAMIN with MINERAL TABLET. PO SCH (08:09)
[2019-08-15] MEDS: FERROUS SULFATE 325 MG TABLET. PO SCH ×2 (08:09→17:00)
[2019-08-15] MEDS: CARVEDILOL 12.5 MG TABLET. PO SCH ×2 (08:14→17:00)
[2019-08-15] MEDS: LISINOPRIL 10 MG TABLET PO SCH (08:14)
[2019-08-15] MEDS: CHOLECALCIFEROL (VITAMIN D3) 1,000 UNIT TABLET PO SCH (08:23)
--- NOTE | 2019-08-15 09:00 | PDOC ---
ORTHO PROGRESS NOTES Subjective She feels like she is doing very well. She is looking forward to going home Vitals Vital Signs Date Time Temp Pulse Resp B/P (MAP) Pulse Ox O2 Delivery O2 Flow Rate FiO2 08/15/19 08:16 85 125/67 08/15/19 06:00 98.5 20 Room Air 98.5 08/15/19 02:32 92 08/14/19 19:30 1.0 Labs Laboratory Tests Test 08/13/19 16:30 08/14/19 05:53 08/14/19 06:55 08/14/19 11:22 Glucose (Fingerstick) 134 mg/dL (70-99) 106 mg/dL (70-99) 107 mg/dL (70-99) Hemoglobin 10.7 g/dL (12.0-15.5) Hematocrit 31.3 % (36.0-47.0) Mean Corpuscular Hemoglobin Concent 34 g/dL (31-37) Prothrombin Time 26.2 SEC (11.7-14.0) Prothromb Time International Ratio 2.4 (0.8-1.1) Test 08/14/19 16:42 08/14/19 20:42 08/15/19 04:20 08/15/19 06:10 Glucose (Fingerstick) 115 mg/dL (70-99) 83 mg/dL (70-99) 87 mg/dL (70-99) Hemoglobin 9.5 g/dL (12.0-15.5) Hematocrit 27.5 % (36.0-47.0) Mean Corpuscular Hemoglobin Concent 35 g/dL (31-37) Prothrombin Time 22.5 SEC (11.7-14.0) Prothromb Time International Ratio 2.0 (0.8-1.1) Laboratory Tests Test 08/14/19 11:22 08/14/19 16:42 08/14/19 20:42 08/15/19 04:20 Glucose (Fingerstick) 107 mg/dL (70-99) 115 mg/dL (70-99) 83 mg/dL (70-99) Hemoglobin 9.5 g/dL (12.0-15.5) Hematocrit 27.5 % (36.0-47.0) Mean Corpuscular Hemoglobin Concent 35 g/dL (31-37) Prothrombin Time 22.5 SEC (11.7-14.0) Prothromb Time International Ratio 2.0 (0.8-1.1) Test 08/15/19 06:10 Glucose (Fingerstick) 87 mg/dL (70-99) Notes She is awake and alert and lying in bed. Dressing is intact and fairly dry. Normal motor and sensation are present in her operative extremity Assessment and Plan She'll be discharged home with home health care. I will see her back in 2 weeks JONNA SCHWAB II, MD Aug 15, 2019 09:00
--- NOTE | 2019-08-15 09:02 | PDOC3 ---
Discharge Summary Visit Information Date of Admission: Aug 12, 2019 Date of Discharge: Aug 15, 2019 Admitting Diagnosis: advanced right hip primary degenerative joint disease Brief Hospital Course Allergies Allergies Coded Allergies Type Severity Reaction Last Updated Verified Penicillins Allergy Intermediate Hives 01/30/15 Yes Vital Signs Vital Signs Date Time Temp Pulse Resp B/P (MAP) Pulse Ox O2 Delivery O2 Flow Rate FiO2 08/15/19 08:16 85 125/67 08/15/19 06:00 98.5 20 Room Air 98.5 08/15/19 02:32 92 08/14/19 19:30 1.0 Lab Results Laboratory Tests Test 08/13/19 16:30 08/14/19 05:53 08/14/19 06:55 08/14/19 11:22 Glucose (Fingerstick) 134 mg/dL (70-99) 106 mg/dL (70-99) 107 mg/dL (70-99) Hemoglobin 10.7 g/dL (12.0-15.5) Hematocrit 31.3 % (36.0-47.0) Mean Corpuscular Hemoglobin Concent 34 g/dL (31-37) Prothrombin Time 26.2 SEC (11.7-14.0) Prothromb Time International Ratio 2.4 (0.8-1.1) Test 08/14/19 16:42 08/14/19 20:42 08/15/19 04:20 08/15/19 06:10 Glucose (Fingerstick) 115 mg/dL (70-99) 83 mg/dL (70-99) 87 mg/dL (70-99) Hemoglobin 9.5 g/dL (12.0-15.5) Hematocrit 27.5 % (36.0-47.0) Mean Corpuscular Hemoglobin Concent 35 g/dL (31-37) Prothrombin Time 22.5 SEC (11.7-14.0) Prothromb Time International Ratio 2.0 (0.8-1.1) Laboratory Tests Test 08/14/19 11:22 08/14/19 16:42 08/14/19 20:42 08/15/19 04:20 Glucose (Fingerstick) 107 mg/dL (70-99) 115 mg/dL (70-99) 83 mg/dL (70-99) Hemoglobin 9.5 g/dL (12.0-15.5) Hematocrit 27.5 % (36.0-47.0) Mean Corpuscular Hemoglobin Concent 35 g/dL (31-37) Prothrombin Time 22.5 SEC (11.7-14.0) Prothromb Time International Ratio 2.0 (0.8-1.1) Test 08/15/19 06:10 Glucose (Fingerstick) 87 mg/dL (70-99) Brief Hospital Course Ms. Billings is a 68 old female who presented to my outpatient orthopedic surgery clinic with complaints of severe and progressive pain that failed conservative therapies including injections. We had a discussion of the risks, benefits, alternatives to total hip arthroplasty and she elected to proceed. She tolerated surgery well and recovered well from anesthesia in the PACU. She was then taken to the joint Center for care and observation. She did receive PT, OT, DVT and antibiotic prophylaxis. She recovered well from surgery and remain ed hemodynamically stable and afebrile throughout the hospitalization. Pain was controlled on oral pain medicine at the time of discharge. Good progress was made with therapy throughout the hospitalization, and activities of daily living were accomplished by the patient. The incision was clean dry and intact and the operative extremity had normal motor and sensation. Discharge Information Condition at Discharge: Stable Follow Up: Weeks Disposition/Orders: D/C to Home w/ HH, D/C to Another Facility Scheduled Aspirin (Children's Aspirin) 81 Mg Tab.chew, 81 MG PO DAILY, (Reported) Entered as Reported by: Tea Pulliam on 01/30/15 0757 Last Taken: Unknown Dose on 08/05/19 0700 Last Action: HELD on 08/12/191139 by LORENA SCHWAB MD Calcium Carbonate (Calcium) 600 Mg Tablet, 600 MG PO DAILY for BONE HEALTH, (Reported) Entered as Reported by: LIZZY HENNING on 07/30/19 1723 Last Action: Converted on 08/12/191139 by LORENA SCHWAB MD Carvedilol (Carvedilol ) 12.5 Mg Tablet, 1 TAB PO BID, #180 Ref 1 (Reported) Entered as Reported by: Tea Pulliam on 01/30/15 0747 Last Taken: Unknown Dose on 08/12/19 0700 Last Action: Continued on 08/12/191139 by LORENA SCHWAB MD Cetirizine Hcl (Zyrtec) 10 Mg Tablet, 10 MG PO QHS for CONTROL ALLERGIES, (Reported) Entered as Reported by: LIZZY HENNING on 07/30/191722 Last Action: Edited on 08/12/191544 by JEM MADRIGAL Cholecalciferol (Vitamin D3) (Vitamin D3) 1,000 Unit Tablet, 5,000 UNITS PO DAILY for CORRECT LOW VITAMIN D LEVEL, #30 Ref 5 (Reported) Entered as Reported by: Tea Pulliam on 01/30/15756 Last Action: Continued on 08/12/191139 by LORENA SCHWAB MD Fish Oil/Dha/Epa (Fish Oil 1,200 Mg Fish Oil) 1 Each Capsule, 1 EACH PO DAILY, (Reported) Entered as Reported by: Tea Pulliam on 01/30/15756 Last Action: HELD on 08/12/191139 by LORENA SCHWAB MD Glucosamine Hcl/Chondr Garcia A Na (Osteo Bi-Flex Caplet) 1 Each Tablet, 1 EACH PO BID for JOINT HEALTH, (Reported) Entered as Reported by: LIZZY HENNING on 07/30/191722 Last Action: HELD on 08/12/191139 by LORENA SCHWAB MD Lisinopril (Lisinopril) 20 Mg Tablet, 0.5 TAB PO DAILY, #30 Ref 5 (Reported) Entered as Reported by: Tea Pulliam on 01/30/15746 Last Action: Continued on 08/12/191139 by LORENA SCHWAB MD Lovastatin (Lovastatin) 40 Mg Tablet, 2 TAB PO QHS for cholesterol, #30 Ref 5 (Reported) Entered as Reported by: Tea Pulliam on 01/30/15746 Last Action: Edited on 08/12/191544 by JEM MADRIGAL Meloxicam (Meloxicam) 15 Mg Tablet, 15 MG PO QODAY for ANTI INFLAMMATORY, (Reported) Entered as Reported by: LIZZY HENNING on 07/30/191722 Last Action: HELD on 08/12/191139 by LORENA SCHWAB MD Metformin Hcl (Metformin Hcl) 500 Mg Tablet, 1 TAB PO BID for CONTROL DIABETES, #60 Ref 3 (Reported) Entered as Reported by: Tea Pulliam on 01/30/15 0747 Last Action: Continued on 08/12/19 1140 by LORENA SCHWAB MD Patient Instructions Patient Instructions She will be discharged home. She can weight-bear as tolerated. [facility] healthcare with [facility] has been set up. I will see her back in 2 weeks. Worrisome signs and symptoms that should prompt a phone call to my office were discussed in her questions were answered. She will continue her Coumadin. JONNA SCHWAB II, MD Aug 15, 2019 09:02
--- NOTE | 2019-08-15 09:06 | SNU/HH DC ---
DISCHARGE WITH HOME HEALTH DISCHARGE INFORMATION: Discharge Date: Aug 15, 2019 Final Diagnosis: Advanced right hip primary degenerative joint disease Condition on Discharge: Stable CODE STATUS: Code Status: Full HOME HEALTH: Face to Face: I certify this patient is under my care and that I, or a nurse practitioner or physician's advertising sales assistant working with me, had a face to face encounter that meets the physician face to face encounter requirements with this patient on []. Medical Complications: S/P Joint Replacement Prison For: Assess & Educate Safety, Medication Management, Other: (blood draws) RN For Eval/Treatment: Yes Physical Therapy For: Evalulation/Treatment Occupational Therapy For: Evaluation/Treatment Home Health Aide For: Self-care Pt Meets Homebound Status: Poor coordination w/ amb., Unsteady balance w/ amb, POST DISCHARGE ORDERS: Activity Instructions for Disc: Activity as tolerated Weight Bearing Status after Di: No restrictions Bathing Instructions: Shower-keep dressing dry DIET AFTER DISCHARGE: Regular Wound/Incision Care: Keep wound/cast CDI, Change dressing, Do not change dressing Other wound/incision instructi: do not change dressing FOLLOW-UP: Follow up with: Henry in 2 weeks Warfarin Follow UP: per pharmacy TREATMENT/EQUIPMENT ORDERS: Adaptive Equipment Issued: Walker CERTIFICATION STATEMENT: Certification Statement: Certification Statement: Based on the above finding, I certify that this patient is confined to the home and needs intermittent custodial care, physical therapy and/or speech therapy, or continues to need occupational therapy.~ This patient is under my care, and I have initiated the establishment of the plan of care.~ This patient will be followed by myself or a community physician who will periodically review the plan of care. Home Meds Reported Medications Glucosamine Hcl/Chondr Garcia A Na (OSTEO BI-FLEX CAPLET) 1 Each Tablet, 1 EACH PO BID for JOINT HEALTH, TAB 07/30/19 Calcium Carbonate (CALCIUM) 600 Mg Tablet, 600 MG PO DAILY for BONE HEALTH, TAB 07/30/19 Cetirizine Hcl (ZYRTEC) 10 Mg Tablet, 10 MG PO QHS for CONTROL ALLERGIES, TAB 07/30/19 Meloxicam (MELOXICAM) 15 Mg Tablet, 15 MG PO QODAY for ANTI INFLAMMATORY, TAB 07/30/19 Aspirin (Children's Aspirin) 81 Mg Tab.chew, 81 MG PO DAILY, TAB.CHEW 01/30/15 Fish Oil/Dha/Epa (FISH OIL 1,200 MG FISH OIL) 1 Each Capsule, 1 EACH PO DAILY 01/30/15 Cholecalciferol (Vitamin D3) (VITAMIN D3) 1,000 Unit Tablet, 5000 UNITS PO DAILY for CORRECT LOW VITAMIN D LEVEL, #30 TAB 5 Refills 01/30/15 Lovastatin (LOVASTATIN) 40 Mg Tablet, 2 TAB PO QHS for cholesterol, #30 TAB 5 Refills 01/30/15 Lisinopril (LISINOPRIL) 20 Mg Tablet, 0.5 TAB PO DAILY, #30 TAB 5 Refills 01/30/15 Carvedilol (CARVEDILOL ) 12.5 Mg Tablet, 1 TAB PO BID, #180 TAB 1 Refill 01/30/15 Metformin Hcl (METFORMIN HCL) 500 Mg Tablet, 1 TAB PO BID for CONTROL DIABETES, #60 TAB 3 Refills 01/30/15 JONNA SCHWAB II, MD Aug 15, 2019 09:06
[2019-08-15] MEDS ORDERED: OXYC1TAB15 PO (13:38)
[2019-08-15] MEDS ORDERED: WARF2TAB PO (13:43)
[2019-08-15] MEDS ORDERED: WARFARIN 2 MG TABLET. PO ONE (14:00)
[2019-08-15 15:22] VITALS: BP 134/75
[2019-08-15 17:00] VITALS: BP 134/75
--- NOTE | 2019-08-15 17:00 | NUR ---
Refused to take coreg and iron pill this evening. Pt states will take tonight before bed time. FSBS 61 this evening. Held metformin dose. Ate 75% dinner. Encourage pt to check FSBS tonight. Verbalized understanding.
--- NOTE | 2019-08-15 17:15 | NUR ---
Discharge instructions given with prescription. Answered questions and concerns. Verbalized understanding. Pt discharged home with home health. Daughter taking pt home.
[2019-08-16] MEDS ORDERED: CHOLECALCIFEROL (VITAMIN D3) 5,000 UNIT CAPSULE PO SCH (09:00)
== END 2019-08-15 17:15 | disposition home health service (06) | DRG 470 ==
LOC: OPSVCIP 11:00 → 4 SOUTHEST 15:15
PROVIDERS: ADMIT Orthopaedic Surgery Sports Medicine; ATTEND Orthopaedic Surgery Sports Medicine
PROC: 0QU507Z Supplement Left Acetabulum with Autologous Tissue Substitute, Open Approach (ICD-10-PCS; 2019-08-12)
PROC: 0SR90JZ Replacement of Right Hip Joint with Synthetic Substitute, Open Approach (ICD-10-PCS; principal; 2019-08-12 12:30)
DX: M16.11 Unilateral primary osteoarthritis, right hip (principal); Z88.0 Allergy status to penicillin; I10 Essential (primary) hypertension; I25.10 Atherosclerotic heart disease of native coronary artery without angina pectoris; E78.5 Hyperlipidemia, unspecified; E11.9 Type 2 diabetes mellitus without complications; Z95.810 Presence of automatic (implantable) cardiac defibrillator; M85.68 Other cyst of bone, other site
CPT/HCPCS: 36415; 72170; 82962; 85014; 85018; 85610; 88304; 88311; A7015; C1713; J0171; J1100; J1815; J1885; J2001; J2270; J2405; J2704; J2710; J2795; J3010; J3370; J3490; J7030; J7050; J7120; 97116; 97150; 97530; 97535; G0378

== ENCOUNTER → 2020-10-30 | Outpatient (CLI) | payer MEDICARE, BC ==
[~2020-10-30] MED LIST changes: -ACETAMINOPHEN 500 MG TABLET PO PRN; -CALC600T4 PO; +CALC600T6 PO; -CETI10TA22 PO; +CETI10TA74 PO; -DEXAMETHASONE SOD PHOS 4 MG/ML VIAL ONE; -FAMOTIDINE 20 MG/2 ML VIAL ONE; -HYDROmorphone 2 MG/ML VIAL IV PRN; -INSULIN LISPRO 100 UNIT/ML 3ML VIAL for OP,RR ONLY. SQ PRN; -IV RINGERS,LACTATED 1000ML 1,000 ML IV SCH; -LIDOCAINE 2% PF 5 ML VIAL. ONE; -MORPHINE SULFATE 2 MG/ML VIAL. IV PRN; -MORPHINE SULFATE 5 MG, KETOROLAC 30MG VIAL 30 MG, ROPIVacaine 0.5% PF 60 ML, EPINEPHrin... INT ART ONE; +NIAC-23 PO; -NIAC500T14 PO; -ONDANSETRON PF 4 MG/2 ML VIAL. IV PRN; -ONDANSETRON PF 4 MG/2 ML VIAL. ONE; +OXYC1TAB15 PO; -PROCHLORPERAZINE 10 MG/2 ML VIAL. IV PRN; -PROPOFOL 20 ML IV ONE; -ROCURONIUM 50 MG/5 ML VIAL. ONE; -TRANEXAMIC ACID 1,000 MG in IV NS 50ML -- 1ST BAG INJ ONE; -TRANEXAMIC ACID 1,000 MG in IV NS 50ML -- 2ND BAG INJ ONE; -VANCOMYCIN 1GM IVPB FOR OMNI 250 ML IV PRN; +WARF2TAB PO; -fentaNYL PF VIAL 100 MCG/2 ML VIAL IV PRN; -fentaNYL PF VIAL 100 MCG/2 ML VIAL ONE
--- NOTE | 2020-10-30 16:45 | KCIC ---
Bilateral digital screening mammograms: Reason for examination: Routine screening. Comparison is made to previous studies dated 09/02/2016 and 07/13/2015. Interpretation was made with the benefit of CAD. 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 The skin and nipples show no abnormalities. No abnormal axillary lymph nodes are seen. The breast parenchyma shows scattered fibroglandular density. (Breast density: Category B.) There are no dominant masses, suspicious calcifications or architectural distortions. A few punctate calcifications are seen. Impression: No evidence of malignancy. Recommend routine screening. BI-RADS Category 1: Negative. "Our facility is accredited by the [employer] Mammography Program." This patient's information has been entered into a reminder system for the patient to be notified with the results of her examination and a target date for the next mammogram. Electronically signed by: Kamilah Anderson MD (10/30/2020 1:56 PM) [id number]
== END ==
LOC: KCIC MAMMO 12:42
PROVIDERS: ATTEND Family Medicine
DX: Z12.31 Encounter for screening mammogram for malignant neoplasm of breast (principal)
CPT/HCPCS: 77067

== ENCOUNTER → 2020-12-17 | Outpatient (CLI) | payer MEDICARE, BC ==
[~2020-12-17] MED LIST changes: +REGADENOSON 0.4 MG/5 ML DISP.SYRIN. IV ONE
--- NOTE | 2020-12-17 16:18 | RAD ---
MR#: [id number] Date of Study: 12/17/2020 Ordering Physician: GEGE BYRNE Referring Physician: MARIA A CH Tech: RT Alban Cordero) (N) APPROVED REPORT Test Type: Pharmacological Stress Nurse/Tech: Delia Chris RN Test Indications: CAD Cardiac History: CAD, HTN, AICD, See EMR. Medications: See EMR. Medical History: DM, See EMR. Resting ECG: SR Resting Heart Rate: 62 bpm Resting Blood Pressure: 138/56mmHg Pretest Chest Pain: No chest pain Nurse/Tech Notes Lungs CTA, Heart tones regular. Consent: The procedure was explained to the patient in lay terms. Informed consent was witnessed. Evangelista eout was entered into [employer]. History and Stress Test performed by RT Ablan Cordero) (N) Pharm. Details Pharmacologic stress testing was performed using 0.4mg per 5ml of regadenoson given intravenously ove r 7-10 seconds. Stress Symptoms No chest pain or symptoms. POST EXERCISE Reason for Termination: Infusion complete Max HR: 87 bpm Max Blood Pressure: 135/55mmHg Blood Pressure response to exercise: Normal blood pressure response during stress. Heart Rate response to exercise: WNL Chest Pain: No. Arrhythmia: No. ST Change: No. INTERPRETATION Stress EKG Conclusion: Baseline EKG showed AV paced rhythm. Nondiagnostic changes at peak stress. N o arrhythmias. Imaging Protocol IMAGE PROTOCOL: Rest Tc-99m/stress Tc-99m 1 day Rest: Stress: Viability: Radiopharm.Tc99m BejsepwmbRe96v Sestamibi Dose10.6mCi 32mCi Duration 13min. 13min. Img Date 12/17/2020 12/17/2020 Inj-Img Vwbr47sjb. 60min. Rest Admin Site:IV - Left AntecubitalAdministrator:RT Consuelo (Nan)(N) Stress Admin Site: IV - Left AntecubitalAdministrator: RT Consuelo (Nan)(N) STRESS DATA End Diast. Vol.57.0mlLVEDV index BSA37.0ml End Syst. Vol.19.0mlLVESV index BSA13.0ml Myocardial Locm222.0gEject. Vusgveun25.0% Stress Scores Regional WT2.00Summed WT14.00 Regional WM0.00Summed WM2.00 Study quality was good. Left Ventricular size was Normal at Rest and Stress. Lung uptake was . Left Ventricular ejection fraction is 71%. The rest and stress images show normal perfusion, normal contraction and thickening. LV Perf. Quant 17 Seg. SSS1.00 17 Seg. SRS2.00 17 Seg. SDS0.00 Stress Defect Extent (% LAD)0.00Rest Defect Extent (% LAD)0.00Rev. Defect Extent (% LAD)0.00 Stress Defect Extent (% LCX) 10.00Rest Defect Extent (% LCX)12.50Rev. Defect Extent (% LCX)1.30 Stress Defect Extent (% RCA)0.00Rest Defect Extent (% RCA)0.00Rev. Defect Extent (% RCA)0.00 Stress Defect Extent (% LISA)1.70Rest Defect Extent (% LISA)2.80Rev. Defect Extent (% LISA)0.20 Conclusion 1. Regadenoson cardioisotope stress test did not show any evidence of ischemia or infarct. 2. Normal left ventricular systolic function with ejection fraction calculated at 71%. 3. Low risk for cardiac events. Signed by : Gege Byrne, Electronically Approved : 12/17/2020 16:17:42
--- NOTE | 2020-12-17 16:31 | CARD ---
MR#: [id number] Date of Study: 12/17/2020 Ordering Physician: GEGE BYRNE, Referring Physician: GEGE BYRNE, Tech: Loan Mendiola CHARLES APPROVED REPORT EXAM: Two-dimensional and M-mode echocardiogram with Doppler and color Doppler. Other Information Quality : Good INDICATION Nonischemic Cardiomyopathy 2D DIMENSIONS RVDd2.1 (2.9-3.5cm)Left Atrium(2D)3.3 (1.6-4.0cm) IVSd0.9 (0.7-1.1cm)Aortic Root(2D)2.5 (2.0-3.7cm) LVDd4.6 (3.9-5.9cm)LVOT Diameter1.7 (1.8-2.4cm) PWd0.9 (0.7-1.1cm)LVDs3.1 (2.5-4.0cm) FS (%) 31.9 %SV59.0 ml LVEF(%)60.0 (>50%) Aortic Valve AoV Peak Waldemar.149.9cm/sAoV VTI38.5cm AO Peak GR.9.0mmHgLVOT Peak Waldemar.99.7cm/s AO Mean GR.6mmHgAVA (VMAX)1.57cm2 AI P 1/2 Islb610db Mitral Valve MV E Zqtgxvrv020.2cm/sMV DECEL RAWR163qm MV A Joxgqexu093.4cm/sE/A Ratio1.1 Tricuspid Valve TR P. Qzevuaqf874ih/sRAP XOBUZHNQ5nyTv TR Peak Gr.03bfIkOQTG55zdBl Pulmonary Vein S1 Pvuvzvnc89.4cm/sD2 Vemrunsn93.0cm/s LEFT VENTRICLE The left ventricle is normal size. There is normal left ventricular wall thickness. The left ventricu lar systolic function is normal. The Ejection Fraction is 55-60%. Apical motion consistent with pacem ervin activation. Transmitral Doppler flow pattern is Grade I-abnormal relaxation pattern. RIGHT VENTRICLE The right ventricle is normal size. The right ventricular systolic function is normal. There is a pac emaker lead in the right ventricle. ATRIA The left atrium size is normal. The right atrium size is normal. A pacemaker is seen in the right atr ium consistent with history. The interatrial septum is intact with no evidence for an atrial septal d efect or patent foramen ovale as noted on 2-D or Doppler imaging. AORTIC VALVE The aortic valve is calcified but opens well. Doppler and Color Flow revealed mild aortic regurgitati on. There is no significant aortic valvular stenosis. MITRAL VALVE The mitral valve is calcified but opens well. Mitral annular calcification is mild. There is no evide nce of mitral valve prolapse. There is no mitral valve stenosis. Doppler and Color-flow revealed mild mitral regurgitation. TRICUSPID VALVE The tricuspid valve is normal in structure and function. Doppler and Color Flow revealed mild tricusp id regurgitation. The PA pressure was estimated at 26 mmHg. There is no tricuspid valve stenosis. PULMONIC VALVE The pulmonary valve is normal in structure and function. Doppler and Color Flow revealed mild pulmoni c valvular regurgitation. There is no pulmonic valvular stenosis. GREAT VESSELS The aortic root is normal in size. The ascending aorta is normal in size. The IVC is normal in size a nd collapses >50% with inspiration. PERICARDIAL EFFUSION There is no evidence of significant pericardial effusion. Critical Notification Critical Value: No <Conclusion> The left ventricular systolic function is normal. The Ejection Fraction is 55-60%. Apical motion consistent with pacemaker activation. Transmitral Doppler flow pattern is Grade I-abnormal relaxation pattern. Pacer lead noted RA/RV. Mild aortic regurgitation. Mild mitral regurgitation. Mild tricuspid regurgitation. The PA pressure was estimated at 26 mmHg. There is no evidence of significant pericardial effusion. Signed by : Gege Byrne, Electronically Approved : 12/17/2020 16:31:08
== END ==
LOC: ECHO 08:31
PROVIDERS: ATTEND Internal Medicine Cardiovascular Disease
DX: I08.8 Other rheumatic multiple valve diseases (principal); I25.10 Atherosclerotic heart disease of native coronary artery without angina pectoris; I10 Essential (primary) hypertension
CPT/HCPCS: 78452; 93017; 93306; A9500; J2785

== ENCOUNTER → 2021-03-10 | Outpatient (CLI) | payer MEDICARE, BC ==
[~2021-03-10] MED LIST changes: -CALC600T6 PO; +CALC600T60 PO; -LISI-334 PO; +LISI20TA18 PO; -REGADENOSON 0.4 MG/5 ML DISP.SYRIN. IV ONE
--- NOTE | 2021-03-10 17:29 | KCIC ---
EXAM: Left shoulder, 3 views. HISTORY: Pain. COMPARISON: None. FINDINGS: 3 views of the left shoulder obtained. There is no acute fracture, dislocation or subluxati on. There is mild degenerative acromioclavicular joint and glenoid spurring. There is a cardiac pacem ervin defibrillator within the rutei-su-nlhz. IMPRESSION: 1. No acute osseous finding. 2. Mild acromioclavicular and glenohumeral joint osteoarthritis. Electronically signed by: Nancy Kumar MD (03/10/2021 5:26 PM) [facility]
== END ==
LOC: KCIC 12:19
PROVIDERS: ATTEND Nurse Practitioner Gerontology
DX: M19.012 Primary osteoarthritis, left shoulder (principal)
CPT/HCPCS: 73030

== ENCOUNTER → 2021-11-03 | Outpatient (CLI) | payer MEDICARE, BC ==
[~2021-11-03] MED LIST changes: -NIAC-23 PO; +NIAC-25 PO
--- NOTE | 2021-11-03 16:04 | KCIC ---
Bilateral digital screening mammograms: Reason for examination: Routine screening. Comparison is made to previous studies dated 10/30/2020 and 09/02/2016. Interpretation was made with the benefit of CAD. 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 The skin and nipples show no abnormalities. No abnormal axilla ry lymph nodes are seen. The breast parenchyma shows scattered fibroglandular density. (Breast densit y: Category B.) There are no dominant masses, suspicious calcifications or architectural distortions. Some benign calcifications are present. Impression: No evidence of malignancy. Recommend routine screening. BI-RADS category 2: Benign "Our facility is accredited by the [employer] Mammography Program." This patient's information has been entered into a reminder system for the patient to be notified wit h the results of her examination and a target date for the next mammogram. Electronically signed by: Kamilah Anderson MD (11/03/2021 4:01 PM) [id number]
== END ==
LOC: KCIC MAMMO 09:37
PROVIDERS: ATTEND Family Medicine
DX: Z12.31 Encounter for screening mammogram for malignant neoplasm of breast (principal)
CPT/HCPCS: 77067

== ENCOUNTER → 2022-01-24 | Outpatient (CLI) | payer MEDICARE, BC ==
--- NOTE | 2022-01-24 16:52 | CARD ---
MR#: [id number] Date of Study: 01/24/2022 Ordering Physician: GEGE BYRNE, Referring Physician: GEGE BYRNE, Tech: Doris Lopez [facility] APPROVED REPORT EXAM: Two-dimensional and M-mode echocardiogram with Doppler and color Doppler. Other Information Quality : AverageHR: 70bpm Rhythm : NSR INDICATION Cardiomyopathy RISK FACTORS Hypertension Diabetes 2D DIMENSIONS RVDd2.5 (2.9-3.5cm)Left Atrium(2D)3.6 (1.6-4.0cm) IVSd1.0 (0.7-1.1cm)Aortic Root(2D)2.7 (2.0-3.7cm) LVDd4.3 (3.9-5.9cm)LVOT Diameter1.8 (1.8-2.4cm) PWd0.7 (0.7-1.1cm)LVDs2.7 (2.5-4.0cm) FS (%) 37.6 %SV55.1 ml Aortic Valve AoV Peak Waldemar.144.7cm/sAoV VTI32.7cm AO Peak GR.8.4mmHgAO Mean GR.4mmHg AI P 1/2 [id number] Mitral Valve MV E Zinnmjnr10.2cm/sMV DECEL [id number] MV A Rhytagyi618.0cm/sE/A Ratio1.0 Pulmonary Valve PV Peak Ucjqgghq895.8cm/s Tricuspid Valve TR P. Dfkrowbj923oh/sTR Peak Gr.22mmHg LEFT VENTRICLE The left ventricle is normal size. There is normal left ventricular wall thickness. The left ventricu lar systolic function is mildly decreased. LV ejection fraction is estimated at 45%. There is mild g lobal hypokinesis of the left ventricle. The left ventricular diastolic function and filling is tresa l for age. RIGHT VENTRICLE The right ventricle is normal size. The right ventricle is mildly hypertrophied. The right ventricula r systolic function is normal. ATRIA The left atrium size is normal. The right atrium size is normal. The interatrial septum is intact wit h no evidence for an atrial septal defect or patent foramen ovale as noted on 2-D or Doppler imaging. AORTIC VALVE The aortic valve is normal in structure and function. Doppler and Color Flow revealed trace to mild a ortic regurgitation. There is no significant aortic valvular stenosis. MITRAL VALVE The mitral valve is normal in structure and function. There is no evidence of mitral valve prolapse. There is no mitral valve stenosis. Doppler and Color-flow revealed mild mitral regurgitation. TRICUSPID VALVE The tricuspid valve is normal in structure and function. Doppler and Color Flow revealed trace to mil d tricuspid regurgitation. Estimated PAP 37 mmHg. There is no tricuspid valve stenosis. PULMONIC VALVE The pulmonary valve is normal in structure and function. Doppler and Color Flow revealed mild pulmoni c valvular regurgitation. GREAT VESSELS The aortic root is normal in size. The ascending aorta is normal in size. The IVC is normal in size a nd collapses >50% with inspiration. PERICARDIAL EFFUSION There is no evidence of significant pericardial effusion. Critical Notification Critical Value: No <Conclusion> The left ventricle is normal size. The left ventricular systolic function is mildly decreased. LV ejection fraction is estimated at 45%. There is mild global hypokinesis of the left ventricle. Doppler and Color Flow revealed trace to mild aortic regurgitation. There is no significant aortic valvular stenosis. Doppler and Color-flow revealed mild mitral regurgitation. Doppler and Color Flow revealed trace to mild tricuspid regurgitation. Estimated PAP 37 mmHg. Signed by : Kalyan Madsen MD Electronically Approved : 01/24/2022 16:51:29
== END ==
LOC: ECHO 08:45
PROVIDERS: ATTEND Internal Medicine Cardiovascular Disease
DX: I08.8 Other rheumatic multiple valve diseases (principal); I42.9 Cardiomyopathy, unspecified
CPT/HCPCS: 93306; C8929